=== PATIENT | female | born 1945 | race Caucasian/White ===

== ENCOUNTER 2019-11-02 08:57 | Outpatient (CLI) | payer MEDICARE, OTHER, SELFPAY ==
--- NOTE | ~2019-11-02 | DEXA_ITS ---
Bone Density Report Name: Ana Paula Hooks Age: 74 Sex: Female Ethnicity: White Date of : 1945 Indication: osteopenia; height loss;postmenopausal Referring Provider: Edvin Wright Study: Bone densitometry was performed. Exam Date: November 02, 2019 Accession number: [id number] Bone Density: Region BMD T-score Z-score Classification AP Spine (L1-L4) 0.778 -2.4 0.0 Osteopenia Femoral Neck (Left) 0.529 -2.9 -0.8 Osteoporosis Total Hip (Left) 0.671 -2.2 -0.4 Osteopenia Total Hip Bilateral Avg 0.697 -2.0 -0.2 Osteopenia Femoral Neck (Right) 0.533 -2.8 -0.7 Osteoporosis Total Hip (Right) 0.722 -1.8 0.0 Osteopenia World Health Organization criteria for BMD impression classify patients as: Normal (T-score at or above -1.0), Osteopenia (T-score between -1.0 and -2.5), or Osteoporosis (T-score at or below -2.5). 10-year Fracture Risk: FRAX not reported because: Some T-score for Spine Total or Hip Total or Femoral Neck at or below -2.5 Previous Exams: Region Exam Age BMD T-score BMD Change BMD Change Date g/cm2 vs Baseline vs Previous AP Spine(L1-L4) 11/02/2019 74 0.778 -2.4 -0.029(-3.6%)* -0.029(-3.6%)* 07/16/2016 70 0.807 -2.2 Total Hip(Left) 11/02/2019 74 0.671 -2.2 -0.010(-1.5%) -0.010(-1.5%) 07/16/2016 70 0.681 -2.1 Total Hip(Right) 11/02/2019 74 0.722 -1.8 0.029(4.1%)* 0.029(4.1%)* 07/16/2016 70 0.694 -2.0 *Denotes significance at 95% confidence level, LSC for AP Spine = 0.022 g/cm2, LSC for Total Hip = 0.027 g/cm2 Clinical Information Provided by Patient: Has used the following medications: Vitamin D, Calcium Patient maximum height was 62 Menopause Age: 48 Drinks caffeinated beverages Onset of menses at age 12 Number of children 1 Impression: The patient has osteoporosis, based on the Left Femoral Neck T-score. The BMD for the AP Spine(L1-L4) decreased, changing by -3.6% since the last DXA exam. Discussion: INCREASED RISK OF FRACTURE. BONE DENSITY IS UNDESIRABLY LOW AT ONE OR MORE SKELETAL SITES, CONSISTENT WITH POSTMENOPAUSAL OSTEOPOROSIS. This patient's lowest T-score meets the World Health Organization's (WHO) criteria for osteoporosis at one or more sites (T-score -2.5 or below). In untreated patients, the risk of osteoporotic fracture increases approximately two-fold for each 1.0 SD decrease in T-score. Low bone density is not the only risk factor for fracture; also consider factors such as patient's age, frailty or poo
== END 2019-11-02 08:58 | disposition home or self-care (01) ==
LOC: ANHIMG 09:04
PROVIDERS: PCP Family Medicine; Visit Provider Physician Assistant
DX: M81.0 Age-related osteoporosis without current pathological fracture (principal); Z78.0 Asymptomatic menopausal state; M85.88 Other specified disorders of bone density and structure, other site; M85.852 Other specified disorders of bone density and structure, left thigh; M85.851 Other specified disorders of bone density and structure, right thigh
CPT/HCPCS: 77080

== ENCOUNTER 2025-04-05 10:14 | Emergency (ER) | payer MEDICARE, SELFPAY ==
[2025-04-05] VITALS (8 sets, daily range): BP systolic 118–140; BP diastolic 50–66; PULSE 67–74; RESP 20–32; TEMP 36.9; O2SAT 97–100
--- NOTE | ~2025-04-05 | XR_ITS ---
Examination: XR chest 2V Clinical History: dyspnea Comparison: None Technique: PA and Lateral Findings: Left pacemaker. Cardiomediastinal silhouette normal size and configuration. Mild basilar predominant interstitial changes. Mild bibasilar atelectasis. Trace pleural effusions not excluded. No acute bony abnormality. Osteopenia. IMPRESSION: 1. No significant acute cardiopulmonary findings. Reviewed, dictated and finalized at location R. SOLUTION ARCHITECT
--- NOTE | 2025-04-05 10:47 | ECG_ITS ---
Test Date: 2025-04-05 10:57:17 Measurements Intervals [place] Rate: 68 P: 74 AR: 181 QRS: 60 QRSD: 102 T: 8 QT: 410 QTc: 439 Interpretive Statements SINUS RHYTHM WITHIN NORMAL LIMITS No previous ECG available for comparison Electronically Signed On 04-05-2025 13:25:40 HEALTH EDUCATOR by Edvin Gilbert M.D.
[2025-04-05 11:17] LABS: Hematocrit 33.9 % (37.0-47.0); Hemoglobin 11.0 g/dL (12.0-15.0); Immature Granulocyte Percent A 0.5 % (0-0.5); Lymphocytes Absolute Auto 1.38 K/mm3 (0.9-3.2); Mean Corpuscular HGB Conc 32.4 g/dl (32-36); Mean Corpuscular Hemoglobin 30.7 pg (26-34); Mean Corpuscular Volume 94.7 fl (80-100); Nucleated Red Blood Cells Absolute Auto 0.000 K/mm3 (0.0-0.012); Nucleated Red Blood Cells Perc 0.0 % (0.0-0.2); Platelet Count Result 212 k/mm3 (150-375); Red Blood Count 3.58 M/mm3 (4.2-5.4); White Blood Count 6.4 K/mm3 (4.5-10.0)
[2025-04-05 11:39] LABS: Alanine Aminotransferase 69 U/L (6-35); Albumin Level 4.0 g/dL (3.5-5.1); Alkaline Phosphatase 42 U/L (38-126); Anion Gap 6 mmol/L (4-12); Aspartate Amino Transferase 78 U/L (14-36); Bilirubin,Total 0.9 mg/dL (0.2-1.3); Blood Urea Nitrogen 22 mg/dL (7-17); Calcium 9.5 mg/dL (8.4-10.2); Carbon Dioxide 28 mmol/L (22-30); Chloride 107 mmol/L (98-107); Estimated CRCL calculation 31 ml/min; Estimated Glomerular Filt Rate 53; Glucose 87 mg/dL (65-110); Potassium 3.9 mmol/L (3.4-5.0); Sodium 141 mmol/L (137-145); Total Protein 7.2 g/dL (6.3-8.2)
[2025-04-05 11:47] LABS: NT Pro B Type Natriuretic Pept 4660 pg/mL (19.9-100)
[2025-04-05] MEDS: FUROSEMIDE INJ 40 MG/4 ML VIAL IV PUSH (11:50)
--- NOTE | 2025-04-05 12:02 | PC.NURSE ---
Rn spoke with Bhupendra at [facility] who states pt has been accepted to Cardio floor, states they will call when a bed is available for pt.
--- NOTE | 2025-04-05 12:08 | ED.GENADULT ---
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 Patient has been receiving care at [facility] and is scheduled for a valve repair on April 24. Patient developed acute dyspnea this morning. She cannot lay flat. She does not have any peripheral edema. She attributes this to her congestive heart failure. She denies fevers or productive cough. No chest pain. Related Data Home Medications ?Medication ?Instructions ?Recorded ?Confirmed ?Last Taken ?Type aspirin 325 mg tablet 325 mg PO DAILY 04/27/19 11/30/24 Unknown History calcium 250 mg (as 1 tablet PO ONCE 04/30/19 11/30/24 Unknown History citrate)-vitamin D3 5 mcg (200 unit) tablet (Citracal Regular) cholecalciferol (vitamin D3) 25 1,000 unit PO DAILY 04/30/19 11/30/24 Unknown History mcg (1,000 unit) capsule multivitamin 1 tablet PO DAILY 04/30/19 11/30/24 Unknown History omega-3 fatty acids-fish oil 360 1 cap PO DAILY 04/30/19 11/30/24 Unknown History mg-1,200 mg capsule (Fish Oil) Allergies Allergy/AdvReac Type Severity Reaction Status Date / Time codeine Allergy Unknown unk Verified 04/05/25 11:51 [facility] Past Medical History Medical History H/O: CVA (cerebrovascular accident) Surgical History Surgical History Status post mitral valve replacement Social History Social History Smoking status: Never smoker Second hand tobacco smoke exposure: No Smoking end date: 05/09/78 Alcohol intake: never Substance use: never Living arrangements: with family Occupation/Education: retired Gender identity (if verbalized by the patient): Female Sexual Orientation (if Verbalized by the Patient): Straight or Heterosexual Exam Narrative: APPEARANCE: No apparent distress. Head: atraumatic. EYES: EOMI, NOSE: Atraumatic NECK: Trachea midline RESPIRATORY: Tachypneic, bibasilar crackles, point of care cardiothoracic ultrasound showed a globally dilated heart with mitral valve regurgitation. She has B lines in the lower lung ryder. She is saturating 100% on room air despite her tachypnea. CARDIOVASCULAR: RRR, no peripheral edema ABDOMINAL: Non-distended soft nontender MUSCULOSKELETAl: No obvious deformities NEURO: Alert. Moving 4/4 extremities SKIN:: Warm, dry. Normal color PSYCHIATRIC: Normal affect Course Vital Signs Vital signs: Vital Signs Temperature 98.4 F 04/05/25 10:24 Pulse Rate 74 04/05/25 10:24 Respiratory Rate 32 H 04/05/25 10:24 Blood Pressure 127/50 L 04/05/25 10:24 Pulse Oximetry 100 04/05/25 10:24 Temperature 98.4 F 04/05/25 10:24 Pulse Rate 71 04/05/25 16:51 Respiratory Rate 20 04/05/25 16:51 Blood Pressure 124/64 04/05/25 16:51 Pulse Oximetry 100 04/05/25 16:51 Oxygen Delivery Room Air 04/05/25 10:30 Medical Decision Making MDM Narrative Medical decision making narrative: -Course: 79-year-old female with severe mitral regurg presenting for acute dyspnea. She is tachypneic although maintaining her oxygen saturations. She has bibasilar crackles. Point of care cardiothoracic ultrasound shows pulmonary edema in the lower lung ryder and both or franca BC. I would not have any medical records on this patient is a reach out discussed the case at [facility]. They have accepted the patient for transfer. Patient will will be diuresed here while awaiting transport. Patient was given Lasix with brisk diuresis in her respiratory rate improved. She is monitored throughout her stay is now resting comfortably. A bed became available barge she was transferred without incident. -DDX includes but is not limited to: Congestive heart failure, mitral regurg pneumonia sepsis Vital Signs Vital Signs: Vital Signs Temperature 98.4 F 04/05/25 10:24 Pulse Rate 74 04/05/25 10:24 Respiratory Rate 32 H 04/05/25 10:24 Blood Pressure 127/50 L 04/05/25 10:24 Pulse Oximetry 100 04/05/25 10:24 Temperature 98.4 F 04/05/25 10:24 Pulse Rate 71 04/05/25 16:51 Respiratory Rate 20 04/05/25 16:51 Blood Pressure 124/64 04/05/25 16:51 Pulse Oximetry 100 04/05/25 16:51 Oxygen Delivery Room Air 04/05/25 10:30 Lab Data 04/05/25 11:06 04/05/25 11:06 Labs: Lab Results 04/05/25 Range/Units 11:06 WBC 6.4 (4.5-10.0) K/mm3 RBC 3.58 L (4.2-5.4) M/mm3 Hgb 11.0 L (12.0-15.0) g/dL Hct 33.9 L (37.0-47.0) % MCV 94.7 (80-100) fl MCH 30.7 (26-34) pg MCHC 32.4 (32-36) g/dl RDW 14.3 (11.5-14.5) % Plt Count 212 (150-375) k/mm3 MPV 9.3 (7.4-10.4) fl Immature Gran % (Auto) 0.5 (0-0.5) % Neut % (Auto) 65.3 (45.5-73.1) % Lymph % (Auto) 21.6 (18.3-44.2) % [place] % (Auto) 8.9 H (2.6-8.5) % Eos % (Auto) 3.1 (0-4.4) % Baso % (Auto) 0.6 (0.2-1.2) % Lymph # (Auto) 1.38 (0.9-3.2) K/mm3 [place] # (Auto) 0.6 (0.1-0.6) K/mm3 Eos # (Auto) 0.2 (0-0.3) K/mm3 Baso # (Auto) 0.0 (0.0-0.1) K/mm3 Abs Immat Gran (auto) 0.03 (0.00-0.031) K/mm3 Absolute Neuts (auto) 4.2 (1.3-6.7) K/mm3 Absolute Nucleated RBC 0.000 (0.0-0.012) K/mm3 Nucleated RBC % 0.0 (0.0-0.2) % Sodium 141 (137-145) mmol/L Potassium 3.9 (3.4-5.0) mmol/L Chloride 107 (98-107) mmol/L Carbon Dioxide 28 (22-30) mmol/L Anion Gap 6 (4-12) mmol/L BUN 22 H (7-17) mg/dL Creatinine 1.01 H (0.7-1.0) mg/dL Estim Creat Clear Calc 31 ml/min Estimated GFR 53 L (59 - ) Glucose 87 (65-110) mg/dL Calcium 9.5 (8.4-10.2) mg/dL Total Bilirubin 0.9 (0.2-1.3) mg/dL AST 78 H (14-36) U/L ALT 69 H (6-35) U/L Alkaline Phosphatase 42 (38-126) U/L NT-Pro-B Natriuret Pep 4660 H (19.9-100) pg/mL Total Protein 7.2 (6.3-8.2) g/dL Albumin 4.0 (3.5-5.1) g/dL Discharge Plan Discharge Clinical Impression: Mitral valve regurgitation Patient Disposition: Home Condition: Guarded Prognosis Instructions: Antibiotic Form Patient Language: Faroese Prescriptions: No Action aspirin 325 mg tablet 325 mg PO DAILY calcium citrate-vitamin D3 [Citracal Regular] 250 mg calcium- 200 unit tablet 1 tablet PO ONCE omega-3 fatty acids-fish oil [Fish Oil] 360-1,200 mg capsule 1 cap PO DAILY multivitamin Tablet 1 tablet PO DAILY cholecalciferol (vitamin D3) 25 mcg (1,000 unit) capsule 1,000 unit PO DAILY amoxicillin 500 mg capsule See Rx Instructions .ROUTE .COMPLEX Qty: 4 0RF Rx Instructions: Take 4 tabs PO 30-60 min prior to dental procedure. losartan 100 mg tablet 100 mg PO DAILY Qty: 90 1RF metoprolol succinate 50 mg tablet extended release 24 hr 50 mg PO DAILY Qty: 90 2RF levothyroxine 100 mcg tablet 100 mcg PO DAILY Qty: 90 2RF atorvastatin 20 mg tablet 20 mg PO DAILY Qty: 90 2RF sertraline 100 mg tablet See Rx Instructions .ROUTE .COMPLEX Qty: 90 1RF Dose Instruction: TAKE 1 TABLET BY MOUTH DAILY Rx Instructions: TAKE 1 TABLET BY MOUTH DAILY Follow-up/Referrals: Keron Ervin MD [Primary Care Provider, Family Practice]
--- NOTE | 2025-04-05 17:00 | PC.NURSE ---
RN spoke with Zhane at [facility] transfer center who states pt has a bed assignment and will be going to room [address]16 at [facility] under accepting physician
--- NOTE | 2025-04-05 17:18 | PC.NURSE ---
Report called to Ana Paula CRUMP at [facility], all questions answered
== END 2025-04-05 17:50 | disposition short-term general hospital (02) ==
PROVIDERS: Emergency Provider Emergency Medicine; PCP Family Medicine
DX: I34.0 Nonrheumatic mitral (valve) insufficiency (principal); Z95.2 Presence of prosthetic heart valve; Z86.73 Personal history of transient ischemic attack (TIA), and cerebral infarction without residual deficits; Z87.891 Personal history of nicotine dependence; Z79.899 Other long term (current) drug therapy
CPT/HCPCS: 36415; 71046; 80053; 83880; 85025; 93005; 96374; 99284; 99285; J1938